=== PATIENT | male | born 2000 | race Caucasian/White ===

== ENCOUNTER 2019-03-11 16:00 | Emergency (ER) | payer OTHER, SELFPAY ==
[2019-03-11] MEDS ORDERED: Ibuprofen 800 MG TAB ONE (17:11)
--- NOTE | 2019-03-11 17:44 | RAD ---
Exam:Left knee 4 views HISTORY: Pain. Injury. COMPARISON: None FINDINGS: No joint effusion. No fracture. No malalignment. Joint spaces are preserved. IMPRESSION: No fracture.
== END 2019-03-11 18:00 | disposition home or self-care (01) ==
LOC: ERS 16:00
DX: M25.562 Pain in left knee (principal); W22.8XXA Striking against or struck by other objects, initial encounter; Z87.891 Personal history of nicotine dependence